=== PATIENT | male | born 2000 | race Caucasian/White ===

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

== ENCOUNTER 2022-08-25 15:25 | Emergency (ER) | payer MEDICAID ==
[~2022-08-25 15:25] MED LIST changes: +CYCL-1 PO
== END 2022-08-25 16:16 | disposition left against medical advice (07) ==
LOC: ER 15:25
DX: R45.851 Suicidal ideations (principal); Z53.21 Procedure and treatment not carried out due to patient leaving prior to being seen by health care provider

== ENCOUNTER 2022-09-05 23:51 | Emergency (ER) | payer MEDICAID ==
--- NOTE | 2022-09-06 00:02 | NUR ---
Patient refusing to get out of ER lobby bathroom.
== END 2022-09-06 00:15 | disposition left against medical advice (07) ==
LOC: ER 23:52
DX: F29 Unspecified psychosis not due to a substance or known physiological condition (principal); Z53.21 Procedure and treatment not carried out due to patient leaving prior to being seen by health care provider

== ENCOUNTER 2022-09-28 06:19 | Emergency (ER) | payer MEDICAID ==
[~2022-09-28] VITALS: Ht 180.3 cm; Wt 76.5 kg
[2022-09-28 06:40] VITALS: BP 140/85
[2022-09-28] MEDS ORDERED: TETanus/Pertussis (Acell)/Diphther VAC/PF (Tdap-Adult) 0.5ml syringe IMVAC ONE (09:15)
[2022-09-28] MEDS ORDERED: LIDOCAINE 2%/EPI 1:100,000 inj. Multi-dose 20 ML VIAL IJ ONE (09:15)
[2022-09-28] MEDS ORDERED: NAPR-56 PO (09:49)
[2022-09-28] MEDS ORDERED: DOXY100C43 PO (09:49)
[2022-09-28] MEDS ORDERED: CEPH250T PO (09:49)
--- NOTE | 2022-09-28 10:20 | NUR ---
4x4 silk tape, and given dressings
== END 2022-09-28 10:20 | disposition home or self-care (01) ==
LOC: ER 06:20
DX: L02.416 Cutaneous abscess of left lower limb (principal); L02.31 Cutaneous abscess of buttock; F41.9 Anxiety disorder, unspecified; F17.200 Nicotine dependence, unspecified, uncomplicated; F12.90 Cannabis use, unspecified, uncomplicated; F15.90 Other stimulant use, unspecified, uncomplicated; F14.90 Cocaine use, unspecified, uncomplicated; F11.90 Opioid use, unspecified, uncomplicated; Z88.2 Allergy status to sulfonamides; Z88.8 Allergy status to other drugs, medicaments and biological substances; Z79.899 Other long term (current) drug therapy
CPT/HCPCS: 10060; 87070; 87077; 87186; 90471; 90715; 99283; A6449

== ENCOUNTER 2023-03-31 01:16 | Emergency (ER) | payer MEDICAID ==
[~2023-03-31] VITALS: Ht 180.3 cm; Wt 80.0 kg
[2023-03-31 04:35] VITALS: BP 144/98; PULSE 102; RESP 16; O2SAT 100
[2023-03-31 04:40] VITALS: TEMP 97.7
[2023-03-31] MEDS: LIDOcaine 1% W/epiNEPHrine 1:100,000 20ml vial IJ ONE (04:49)
[2023-03-31] MEDS ORDERED: CEPH250T PO (04:50)
[2023-03-31] MEDS: bacitracin 15gm ointment TP ONE (05:12)
== END 2023-03-31 05:23 | disposition home or self-care (01) ==
LOC: ER 01:17
DX: L02.11 Cutaneous abscess of neck (principal); F12.90 Cannabis use, unspecified, uncomplicated; F15.90 Other stimulant use, unspecified, uncomplicated; Z88.2 Allergy status to sulfonamides; Z79.2 Long term (current) use of antibiotics; Z79.899 Other long term (current) drug therapy
CPT/HCPCS: 10061; 99284; A6258; A6449

== ENCOUNTER 2023-05-24 20:57 | Emergency (ER) | payer MEDICAID ==
[~2023-05-24] VITALS: Ht 180.3 cm; Wt 86.4 kg
[2023-05-24] MEDS ORDERED: naloxone 2mg/2ml inj IV STA (22:37)
[2023-05-24] MEDS ORDERED: ondansetron/PF 4mg/2ml inj IV ONE (22:40)
[2023-05-24] MEDS ORDERED: normal saline 1000ML IV soln IVB ONE (22:40)
[2023-05-24] MEDS ORDERED: famotidine/PF 10 mg/ml inj IV ONE (22:40)
[2023-05-24 22:44] LABS: BASOPHILS # (AUTO) 0.1 X10'3 (0-0.2); BASOPHILS % (AUTO) 0.5 % (0-1); EOSINOPHILS % (AUTO) 0.4 % (0-6); HEMATOCRIT 40.5 % (42.0-52.0); MEAN CORPUSCULAR HGB CONC 34.5 g/dL (33.0-36.5); MEAN CORPUSCULAR VOLUME 86.9 FL (78-98); MEAN PLATELET VOLUME 7.2 FL (7.4-10.4); MONOCYTES # (AUTO) 0.9 X10'3 (0-0.9); MONOCYTES % (AUTO) 7.7 % (2-12); NEUTROPHILS # (AUTO) 8.2 X10'3 (1.8-7.7); NEUTROPHILS % (AUTO) 73.4 % (42-75); PLATELET COUNT 335 X10'3 (140-440); RED BLOOD COUNT 4.66 X10'6 (4.70-6.10); WHITE BLOOD COUNT 11.2 X10'3 (4.5-11.0)
[2023-05-24 22:59] LABS: ALANINE AMINOTRANSFERASE 16 U/L (12-78); ALBUMIN 4.3 G/DL (3.4-5.0); ALBUMIN/GLOBULIN RATIO 1.5 (1.1-1.5); ALKALINE PHOSPHATASE 53 IU/L (46-116); ANION GAP 5 (8-16); ASPARTATE AMINO TRANSFERASE 15 U/L (10-37); BILIRUBIN,TOTAL 0.4 MG/DL (0.1-1.0); BLOOD UREA NITROGEN 15 MG/DL (7-18); BUN/CREATININE RATIO 14.6 (10.0-20.0); CALCIUM 9.5 MG/DL (8.5-10.1); CHLORIDE 102 MMOL/L (99-107); CREATININE 1.03 MG/DL (0.60-1.10); ETHANOL < 10 MG/DL (<10); GLUCOSE 150 MG/DL (70-104); SALICYLATE 1.2 MG/DL (4.0-20.0); SODIUM 139 MMOL/L (135-145); TOTAL CARBON DIOXIDE 32.1 MMOL/L (24-32); TOTAL PROTEIN 7.1 G/DL (6.4-8.2); eCRCL 119 ML/MIN; eGFR 89 ML/MIN
[2023-05-24 23:02] LABS: POTASSIUM 4.5 MMOL/L (3.5-5.1)
[2023-05-24 23:09] LABS: ACETAMINOPHEN < 2.0 UG/ML (10-30)
[2023-05-24 23:34] LABS: URINE AMPHETAMINE SCREEN NEGATIVE (Neg); URINE BARBITUATE SCREEN NEGATIVE (Neg); URINE BENZODIAZEPINES SCREEN NEGATIVE (Neg); URINE CANNABINOID SCREEN NEGATIVE (Neg); URINE COCAINE SCREEN NEGATIVE (Neg); URINE METHADONE SCREEN NEGATIVE (Neg); URINE OPIATE SCREEN NEGATIVE (Neg); URINE PHENCYCLIDINE SCREEN NEGATIVE (Neg)
--- NOTE | 2023-05-25 00:05 | NUR ---
iv dc'd pt being discharged dressing applied
[2023-05-25 00:25] VITALS: BP 127/78; PULSE 89; RESP 18; TEMP 98.6; O2SAT 98
== END 2023-05-25 00:26 ==
LOC: ER 20:58
DX: F11.121 Opioid abuse with intoxication delirium (principal)
CPT/HCPCS: 36415; 80053; 80305; 80320; 80329; 85025; 93005; 96361; 96374; 96375; 99284; J2405; J3490; J7030